=== PATIENT | male | born 1985 | race Asian ===

== ENCOUNTER 2017-12-05 17:21 | Emergency (ER) | payer OTHER ==
[~2017-12-05] VITALS: Ht 188 cm; Wt 108.9 kg
[2017-12-05 18:12] LABS: ABSOLUTE BASOPHIL COUNT 0 /CUMM (0.0-0.2); ABSOLUTE EOSINOPHIL COUNT 0.1 /CUMM (0.0-0.7); ABSOLUTE GRANULOCYTE CT 13.4 /CUMM (1.4-6.5); ABSOLUTE LYMPH COUNT 1.6 /CUMM (1.2-3.4); ABSOLUTE MONOCYTE COUNT 1.8 /CUMM (0.10-0.60); BASOPHIL % 0.2 % (0.0-2.0); EOSINOPHIL % 0.6 % (0-5); GRANULOCYTE % 79.4 % (42.2-75.2); HEMATOCRIT 43.9 % (42-52); MEAN CORPUSCULAR HGB 27.9 PG (27.0-31.0); MEAN CORPUSCULAR HGB CONC 33.5 G/DL (33.0-37.0); MEAN CORPUSCULAR VOLUME 83.3 FL (80.0-94.0); MEAN PLATELET VOLUME 9.1 FL (7.4-10.4); PLATELET COUNT 163 /CUMM (130-400); RBC DISTRIBUTION WIDTH 12.8 % (11.5-14.5); RED BLOOD CELL CT 5.27 /CUMM (4.70-6.10); WHITE BLOOD CELL COUNT 16.9 /CUMM (4.8-10.8)
--- NOTE | 2017-12-05 18:16 | ED THROAT/DENTAL COMPLAINT ---
History of Present Illness General Chief Complaint: General Adult Stated Complaint: PT HAS A FEVER Source: patient Exam Limitations: no limitations Vital Signs & Intake/Output Vital Signs & Intake/Output Vital Signs Date Time Temp Pulse Resp B/P B/P Pulse O2 O2 Flow FiO2 Mean Ox Delivery Rate 12/058 99.2 12/05 1803 Room Air Room Air 12/05 1745 101.9 98 18 139/78 97 Room Air Allergies Coded Allergies: No Known Allergies (12/05/17) Triage Note: 32M WITH FEVERS X3 DAYS, TEMP 101.9 WITH SORE THROAT, RIGHT SIDED LYMPHADENOPATHY, +CHILLS AND RIGORS. APPEARS DIAPHORETIC. PT TOOK [employer] WITHOUT EFFECT. +DIFF SWALLOWING. -N/V/D OR ABD PAIN. REPORTS NEAR SYNCOPE LAST NIGHT, DENIES ASSOCIATED CP/SOB. DENIES HEADACHE. +DYSURIA, DECREASED OUTPUT AND BURNING. DENIES HEMATURIA. DENIES PAIN ASIDE FROM THROAT AND R EAR. TOOK AMOX 1 DAY, THEN AUGMENTIN TODAY WITHOUT IMPROVEMENT. OROPHARYNX EXTREMELY EDEMATOUS WITH ERYTHEMA AND YELLOW PUS TO RIGHT TONSIL. TONSILS 3+, DENIES DIFF BREATHING. THROAT SWAB OBTAINED AND SENT FROM TRIAGE Triage Nurses Notes Reviewed? yes HPI: Patient presents for evaluation of worsening sore throat pain that began gradually on . Since then the patient has spiked a high fever and has had shaking chills/Wiegers. He is also experiencing severe painful swallowing. (Ana Luisa ANDREW,Edy Beauchamp) Reconcile Medications Clindamycin HCl (Cleocin HCl) 150 MG CAPSULE 1 CAP PO TID pharyngitis Dexamethasone 4 MG TABLET 4 TAB PO BID pharyngitis Hydrocodone/Acetaminophen (Vaiden 5-325 Tablet) 5 MG-325 MG TABLET 1-2 TAB PO Q4-6 PRN PRN severe pain [Magic mouthwash] 5-10 ML PO Q4H PRN pharyngitis lido:maalox:benadryl=1:1:1 (Sherrill ANDREW,Migue) Past History Travel History Traveled to [place] past 21 day No Medical History Any Pertinent Medical History? see below for history Neurological: NONE EENT: NONE Cardiovascular: NONE Respiratory: NONE Gastrointestinal: NONE Hepatic: NONE Renal: NONE Musculoskeletal: NONE Psychiatric: NONE Endocrine: NONE Blood Disorders: NONE Cancer(s): NONE Surgical History Surgical History: non-contributory Psychosocial History What is your primary language Sierra Leonean Tobacco Use: Never used ETOH Use: denies use Illicit Drug Use: denies illicit drug use Family History Hx Contributory? No (Ana Luisa ANDREW,Edy Beauchamp) Review of Systems Review of Systems Constitutional: Reports: no symptoms. EENTM: Reports: see HPI. Respiratory: Reports: no symptoms. Cardiovascular: Reports: no symptoms. GI: Reports: no symptoms. Genitourinary: Reports: no symptoms. Musculoskeletal: Reports: no symptoms. Skin: Reports: no symptoms. Neurological/Psychological: Reports: no symptoms. Hematologic/Endocrine: Reports: no symptoms. Immunologic/Allergic: Reports: no symptoms. All Other Systems: Reviewed and Negative (Ana Luisa ANDREW,Edy Beauchamp) Physical Exam Physical Exam Mouth/Throat: SEE BELOW Comments: Gen.: Well-nourished, well-developed, no acute respiratory distress. Appears mildly uncomfortable secondary to sore throat pain. Nontoxic-appearing. Head: Normocephalic, atraumatic. Eyes: Normal inspection bilaterally Ears: Normal inspection bilaterally Nose: Normal inspection Throat/mouth : Moist mucosa , bilateral oropharyngeal erythema (symmetric) with exudates. Uvula is midline. No apparent peritonsillar abscess. Managing secretions well. Neck: Supple, full range of motion, no goiter Lungs: Quiet respirations Back: Normal range of motion Extremities: Normal range of motion grossly, no cyanosis clubbing or edema of the upper extremities Neurologic: Cranial nerves grossly intact, speech is clear Skin: warm and dry Psychiatric: Calm, cooperative, no apparent delusions or hallucinations Lymphatic: Mild anterior cervical lymphadenopathy with tenderness Core Measures ACS in differential dx? No Sepsis Present: No Sepsis Focused Exam Completed? No (Ana Luisa ANDREW,Edy Beauchamp) Progress Differential Diagnosis: epiglottitis, Ludwigs angina, odontogenic abscess, roger- tonsillar abscess, strep pharyngitis Plan of Care: Orders Procedure Date/time Status BLOOD CULTURE 12/05 1841 Active THROAT CULTURE W/QUICK STREP 12/05 172 Active BLOOD CULTURE 12/05 1729 Active URINALYSIS 12/05 1729 Active COMPREHENSIVE METABOLIC PANEL 12/05 172 Complete CBC WITHOUT DIFFERENTIAL 12/05 172 Complete Laboratory Tests 12/05/17 2005: Urine Color Pending, Urine Clarity Pending, Urine pH Pending, Ur Specific [place] Pending, Urine Protein Pending, Urine Ketones Pending, Urine Nitrite Pending, Urine Bilirubin Pending, Urine Urobilinogen Pending, Ur Leukocyte Esterase Pending, Ur Microscopic Pending, Urine Hemoglobin Pending, Urine Glucose Pending 12/05/17 1752: Anion Gap 12, Estimated GFR > 60, BUN/Creatinine Ratio 9.1, Glucose 126 H, Calcium 8.7, Total Bilirubin 0.7, AST 16 L, ALT 19 L, Alkaline Phosphatase 72, Total Protein 7.4, Albumin 3.9, Globulin 3.5, Albumin/Globulin Ratio 1.1, CBC w Diff NO MAN DIFF REQ, RBC 5.27, MCV 83.3, MCH 27.9, MCHC 33.5, RDW 12.8, MPV 9.1 , Gran % 79.4 H, Lymphocytes % 9.2 L, Monocytes % 10.6 H, Eosinophils % 0.6, Basophils % 0.2, Absolute Granulocytes 13.4 H, Absolute Lymphocytes 1.6, Absolute Monocytes 1.8 H, Absolute Eosinophils 0.1, Absolute Basophils 0 Microbiology 12/05 185 BLOOD: Blood Culture - RECD 12/06 1751 BLOOD: Blood Culture - RECD Comments: 12/05/2017 7:12:47 PM patient signed out to Dr. Mccartney at shift place change roof bolter. (Ana Luisa ANDREW,Edy Beauchamp) Comments: Feels better (Sherrill ANDREW,Migue) Departure Departure Condition: Stable Clinical Impression Primary Impression: Exudative pharyngitis Referrals: Alma Rosa Arias MD (PCP/Family) Departure Forms: Customer Survey General Discharge Information (Ana Luisa ANDREW,Edy Beauchamp) Departure Time of Disposition: 2014 Disposition: HOME OR SELF CARE Prescriptions: Current Visit Scripts Clindamycin HCl (Cleocin HCl) 1 CAP PO TID #30 CAP Dexamethasone 4 TAB PO BID #10 TAB Hydrocodone/Acetaminophen (Vaiden 5-325 Tablet) 1-2 TAB PO Q4-6 PRN PRN severe pain #15 TAB [Magic mouthwash] 5-10 ML PO Q4H PRN pharyngitis #270 ML lido:maalox:benadryl=1:1:1 (Sherrill ANDREW,Migue)
[2017-12-05] MEDS ORDERED: DEXAMETHASONE4 M1 PO ×2 (20:18→20:27)
[2017-12-05] MEDS ORDERED: CLEOCIN HCL150 M1 PO (20:18)
[2017-12-05] MEDS ORDERED: Magic mouthwash PO (20:18)
[2017-12-05] MEDS ORDERED: NORCO 5-325 TA1 EACH PO (20:18)
[2017-12-05 20:32] VITALS: BP 107/68
== END 2017-12-05 20:34 ==
LOC: ERH 17:21
PROVIDERS: Physician Assistant Medical
DX: J02.9 Acute pharyngitis, unspecified (principal)
CPT/HCPCS: 81001; 87040; 96374; 96375; J0131; J1885